=== PATIENT | female | born 1950 | race Caucasian/White ===

== ENCOUNTER 2020-05-11 18:18 | Inpatient (IN) | payer MEDICARE, MEDICAID ==
[~2020-05-11] VITALS: Ht 172.7 cm; Wt 58.4 kg
[2020-05-11 18:22] VITALS: BP 112/64
[2020-05-11 19:01] LABS: HEMATOCRIT 41.7 % (37.0-47.0); HEMOGLOBIN 14.2 gm/dL (12.0-15.0); MCH 29.7 pg (26.0-34.0); MCV 87.3 fL (80.0-100.0); MPV 9.8 fl. (7.2-11.1); NUCLEATED RBCS 0 /100WBC; PLATELET COUNT* 286 thou/uL (150-400); RBC 4.78 mil/uL (4.20-5.00); RDW-CV 16.2 % (10.5-14.5); WBC 9.5 thou/uL (4.0-11.0)
[2020-05-11 19:10] LABS: CALCIUM 8.8 mg/dL (8.5-10.1); CREATININE 0.7 mg/dL (0.6-1.3); POTASSIUM 4.2 mmol/L (3.5-5.1)
[2020-05-11 19:15] LABS: ALBUMIN 3.2 g/dL (3.4-5.0); TOTAL BILIRUBIN 0.1 mg/dL (<0.1-1.0); TOTAL PROTEIN 8.3 g/dL (6.4-8.2)
[2020-05-11 19:28] LABS: ABSOLUTE BASOPHILS 0.1 thou/uL (0.0-0.2); ABSOLUTE EOSINOPHILS 0.3 thou/uL (0.0-0.7); ABSOLUTE LYMPHOCYTES 2.9 thou/uL (0.8-5.3); ABSOLUTE MONOCYTES 1.3 thou/uL (0.0-1.2); ABSOLUTE NEUTROPHILS 4.8 thou/uL (1.6-8.1); PLATELET ESTIMATE ADEQUATE
[2020-05-11 20:22] LABS: BE 3.5 mmol/L (-2 to +3); pH 7.382 (7.340-7.450)
[2020-05-11 20:27] LABS: PCO2 50.9 mmHg (35.0-45.0); PO2 210.7 mmHg (75.0-100.0)
[2020-05-11 20:27] LABS: INFLUENZA A ANTIGEN Negative (Negative); INFLUENZA B ANTIGEN Negative (Negative)
[2020-05-11 21:58] VITALS: BP 114/66
[2020-05-11 22:30] VITALS: BP 100/62
[2020-05-12] VITALS: BP 112/67
[2020-05-12 04:00] VITALS: BP 97/62
[2020-05-12] MEDS ORDERED: CALCIUM CARBON600 MG PO (04:10)
[2020-05-12] MEDS ORDERED: ZYRTEC 10 MG TA10 MG PO (04:10)
[2020-05-12] MEDS ORDERED: CONSTULOSE10 GM/15 M PO (04:11)
[2020-05-12] MEDS ORDERED: FUROSEMIDE 20 M20 MG PO (04:11)
[2020-05-12] MEDS ORDERED: KLOR-CON 10 ER10 MEQ PO (04:12)
[2020-05-12] MEDS ORDERED: ZOLOFT100 MG PO (04:13)
[2020-05-12] MEDS ORDERED: ACIDOPHILUS CA1 EAC1 PO (04:13)
[2020-05-12] MEDS ORDERED: PEPCID20 MG PO (04:14)
[2020-05-12] MEDS ORDERED: ELIQUIS5 MG PO (04:14)
[2020-05-12] MEDS ORDERED: SENNA LAXATIVE8.6 MG PO (04:15)
[2020-05-12] MEDS ORDERED: MUCINEX600 MG PO (04:15)
[2020-05-12] MEDS ORDERED: SILACE50 MG/5 ML PO (04:16)
[2020-05-12] MEDS ORDERED: VALPROIC A250 MG/51 PO (04:17)
[2020-05-12] MEDS ORDERED: ACETAMINOPHEN325 M1 PO (04:17)
[2020-05-12] MEDS ORDERED: DULCOLAX10 MG RECTAL (04:18)
[2020-05-12] MEDS ORDERED: DIPHEDRYL25 M2 PO (04:19)
[2020-05-12] MEDS ORDERED: FLEET ENEMA133 ML RECTAL (04:20)
[2020-05-12] MEDS ORDERED: MILK OF MA400 MG/5 M PO (04:21)
[2020-05-12] MEDS ORDERED: TRAMADOL 50 MG50 MG PO (04:22)
[2020-05-12] MEDS ORDERED: IPRAT-ALBUT 0.5-3 ML INH (04:54)
[2020-05-12 08:00] VITALS: BP 113/70
[2020-05-12 09:28] LABS: CALCIUM 8.6 mg/dL (8.5-10.1); CREATININE 0.6 mg/dL (0.6-1.3); MAGNESIUM 2.1 mg/dL (1.8-2.4); POTASSIUM 4.4 mmol/L (3.5-5.1)
[2020-05-12 12:00] VITALS: BP 118/83
[2020-05-12 18:40] VITALS: BP 113/78
[2020-05-12 20:00] VITALS: BP 113/69
[2020-05-13] VITALS: BP 103/66
[2020-05-13 04:00] VITALS: BP 108/64
[2020-05-13 09:10] VITALS: BP 118/93
[2020-05-13 13:00] VITALS: BP 138/96
[2020-05-13 17:58] VITALS: BP 138/59
[2020-05-13 20:00] VITALS: BP 113/51
[2020-05-14 04:00] VITALS: BP 120/71
[2020-05-14 08:30] VITALS: BP 130/78
[2020-05-14 15:00] VITALS: BP 107/68
[2020-05-14 18:58] VITALS: BP 112/56
[2020-05-14 20:00] VITALS: BP 113/64
[2020-05-15] VITALS: BP 115/62
[2020-05-15 08:00] VITALS: BP 130/77
[2020-05-15] MEDS ORDERED: DEXAMETHASONE 22 M1 PO (09:27)
[2020-05-15 18:55] VITALS: BP 127/74
[2020-05-15 20:00] VITALS: BP 110/65
[2020-05-16 04:00] VITALS: BP 112/83
[2020-05-16 16:00] VITALS: BP 128/65
[2020-05-16 20:00] VITALS: BP 114/76
[2020-05-17] VITALS: BP 105/65
[2020-05-17 04:36] LABS: ABSOLUTE MONOCYTES 0.9 thou/uL (0.0-1.2); ABSOLUTE NEUTROPHILS 5.5 thou/uL (1.6-8.1); BASOPHILS 0.3 %; EOSINOPHILS 0.1 %; HEMATOCRIT 40.6 % (37.0-47.0); HEMOGLOBIN 13.9 gm/dL (12.0-15.0); LYMPHOCYTES 31.6 %; MCH 29.2 pg (26.0-34.0); MCHC 34.2 g/dL (28.0-37.0); MCV 85.3 fL (80.0-100.0); MONOCYTES 9.6 %; MPV 9.9 fl. (7.2-11.1); NUCLEATED RBCS 0 /100WBC; PLATELET COUNT* 311 thou/uL (150-400); POLYS 58.4 %; RBC 4.76 mil/uL (4.20-5.00); RDW-CV 16.8 % (10.5-14.5); WBC 9.3 thou/uL (4.0-11.0)
[2020-05-17 06:16] LABS: CALCIUM 8.7 mg/dL (8.5-10.1); CREATININE 0.6 mg/dL (0.6-1.3); POTASSIUM 4.3 mmol/L (3.5-5.1); TOTAL BILIRUBIN 0.3 mg/dL (<0.1-1.0); TOTAL PROTEIN 7.5 g/dL (6.4-8.2)
[2020-05-17 12:03] VITALS: BP 117/77
[2020-05-17 15:49] VITALS: BP 107/95
[2020-05-17 20:30] VITALS: BP 126/76
[2020-05-18 04:32] VITALS: BP 144/83
[2020-05-18 08:00] VITALS: BP 123/75
[2020-05-18 14:06] VITALS: BP 108/72
[2020-05-18 19:09] VITALS: BP 134/80
[2020-05-18 20:16] VITALS: BP 122/74
[2020-05-19] VITALS: BP 128/78
[2020-05-19 04:56] LABS: ABSOLUTE LYMPHOCYTES 3.2 thou/uL (0.8-5.3); ABSOLUTE MONOCYTES 0.9 thou/uL (0.0-1.2); ABSOLUTE NEUTROPHILS 6.2 thou/uL (1.6-8.1); BASOPHILS 0.3 %; HEMATOCRIT 43.3 % (37.0-47.0); HEMOGLOBIN 14.5 gm/dL (12.0-15.0); LYMPHOCYTES 31.2 %; MCH 28.9 pg (26.0-34.0); MCHC 33.6 g/dL (28.0-37.0); MCV 86.3 fL (80.0-100.0); MONOCYTES 8.4 %; MPV 9.6 fl. (7.2-11.1); NUCLEATED RBCS 0 /100WBC; POLYS 60.1 %; RBC 5.01 mil/uL (4.20-5.00); RDW-CV 16.8 % (10.5-14.5); WBC 10.3 thou/uL (4.0-11.0)
[2020-05-19 05:26] LABS: PLATELET COUNT* 386 thou/uL (150-400)
[2020-05-19 05:33] LABS: CALCIUM 8.7 mg/dL (8.5-10.1); CREATININE 0.6 mg/dL (0.6-1.3); POTASSIUM 3.7 mmol/L (3.5-5.1); TOTAL BILIRUBIN 0.3 mg/dL (<0.1-1.0); TOTAL PROTEIN 8.2 g/dL (6.4-8.2)
[2020-05-19 08:00] VITALS: BP 119/68
[2020-05-19 18:59] VITALS: BP 132/83
[2020-05-19 20:51] VITALS: BP 110/59
[2020-05-20] VITALS: BP 130/78
[2020-05-20 08:00] VITALS: BP 127/70
[2020-05-20 17:20] VITALS: BP 113/66
[2020-05-20 19:47] VITALS: BP 120/72
[2020-05-21] VITALS: BP 147/87
[2020-05-21 08:00] VITALS: BP 124/66
[2020-05-21 16:17] VITALS: BP 117/70
[2020-05-21 20:00] VITALS: BP 118/72
[2020-05-22] VITALS: BP 139/67
[2020-05-22 05:13] LABS: CREATININE 0.6 mg/dL (0.6-1.3); MAGNESIUM 2.1 mg/dL (1.8-2.4); POTASSIUM 3.4 mmol/L (3.5-5.1)
[2020-05-22 06:22] LABS: HEMATOCRIT 43.2 % (37.0-47.0); HEMOGLOBIN 14.3 gm/dL (12.0-15.0); MCH 29.2 pg (26.0-34.0); MCHC 33.1 g/dL (28.0-37.0); MPV 10.1 fl. (7.2-11.1); RBC 4.9 mil/uL (4.20-5.00); RDW-CV 16.1 % (10.5-14.5); WBC 11.9 thou/uL (4.0-11.0)
[2020-05-22 08:00] VITALS: BP 112/60
[2020-05-22] MEDS ORDERED: DEXAMETHASONE 22 M1 PO (19:52)
--- NOTE | 2020-05-25 13:11 | CON ---
[address] [address] CONSULTATION Name: KRISTIN CAMERON Room: [address] [place] .#: [id number] Admission: 05/11/20 Attend Phys: Elia Gold Discharge: 05/22/20 Date of : 54 Report #: [id number] THIS REPORT FOR: //name// cc: Ck Murillo MD, Srinath MD ~ THIS REPORT FOR: //name// CC: Jessica Murillo DATE OF SERVICE: 05/18/2020 REQUESTING PHYSICIAN: Consult has been requested by Dr. Sauceda. INDICATION FOR CONSULTATION: COVID-19. HISTORY OF PRESENT ILLNESS: This is a 69-year-old female. She is the resident of a long-term care facility, has a history of closed head injury as well as seizures. The patient is now admitted here with COVID-19. Currently, she is on room air. She is not in any respiratory distress. The patient does, however, have dysphagia. She has been coughing with taking liquids and has mild swelling of lower extremities. The patient is currently on honey thick liquids, I do not see a visit by the speech therapist during this hospitalization. Therefore, it is possible that the patient came in to the hospital being on honey thick liquids; however, I do not have definite information available in this regard. The patient is unable to provide a further history or review of systems. PAST MEDICAL HISTORY: Closed head injury, seizures, mood disorder, hypertension, vitamin D deficiency, hypothyroidism, skeletal abnormality/contractures, macrocytosis, thrombocytopenia. The patient is reported to be a functional quadriplegic hypercoagulable state. She is on long-term anticoagulation. SOCIAL HISTORY: There is no documented history of smoking, ethanol abuse or drug abuse. CURRENT MEDICATIONS: List in [facility] reviewed. HOME MEDICATIONS: List at the long-term care facility in [facility] reviewed. FAMILY HISTORY: The patient is unable to provide a family history. ALLERGIES: MULTIPLE MEDICATIONS INCLUDING ANTIBIOTICS ESSENTIALLY EVERY GROUP LISTED AN ALLERGY. I am not certain if the patient in fact is allergic to all these medications. I [place] [address] CONSULTATION Name: KRISTIN CAMERON Room: [address]#: [id number] Admission: 05/11/20 Attend Phys: Elia Gold Discharge: 05/22/20 Date of : 54 Report #: [id number] PHYSICAL EXAMINATION: GENERAL: She is awake, but confused. VITAL SIGNS: Has a pulse of 92 and a blood pressure of 108/72. She is on room air, has been saturating in the low 90s. Last O2 saturation recorded at 90%. HEENT: Head is normocephalic. There is no raised JVP. CHEST: Clear to auscultation. HEART: Regular. There is no murmur. ABDOMEN: Soft and nontender. EXTREMITIES: Lower extremities do show trace to 1+ edema, which is somewhat more on the left side than the right. LABORATORY DATA: The patient's chest x-ray shows raised right hemidiaphragm, last repeated 2 days ago. There are patchy bilateral infiltrates as well consistent with her diagnosis of COVID-19. Both chest x-rays are reviewed. COVID-19 antigen was positive. Chemistry as well as CBC last repeated yesterday in [facility] reviewed. D-dimer initially was not elevated. Initial arterial blood gas did show pCO2 retention with a normal pH. Her bicarbonate was also elevated to 33 at that time, and the last one was 29. ASSESSMENT AND PLAN: 1. COVID-19. Agree with current management. Suggest tapering off dexamethasone as tolerated. Last recorded O2 saturation is 90%, but the patient is not in any distress. I would recommend rechecking oxygen. We will plan to keep at or above 92% for now. 2. Pulmonary infiltrates. Appear to be secondary to COVID-19. I do not see any definite evidence of superimposed bacterial infection. We will repeat a chest x-ray tomorrow and reevaluate. Note that the patient could have low-grade, long-term aspiration though. 3. Dysphagia. Recommend consulting speech. Recommend observing aspiration precautions. The patient already is on honey thick liquids. 4. Mild fluid overload. She is on low dose Lasix. Blood pressure last recorded on the lower side at 108/72. If blood pressure remains maintained, we can give her additional Lasix. I do not have a measure of her left ventricular ejection fraction available. Down the line, an echocardiogram can be considered. 5. Hypercoagulable state. Noted to be on Eliquis long-term. 6. Functional quadriplegic. 7. History of close head injury. 8. History of a seizure disorder. Thanks for this consultation. <ELECTRONICALLY SIGNED> By: Boone Glez MD 05/25/20 [id number] Glez MD /nt
== END 2020-05-22 13:30 | DRG 177 ==
LOC: M.ERS 18:18 → M.TBA-ER 20:43 → M.2W 20:43
PROVIDERS: Emergency Medicine; Family Medicine; Internal Medicine; Internal Medicine Critical Care Medicine; Personal Emergency Response Attendant; ADMIT Internal Medicine; ATTEND Internal Medicine
DX: U07.1 COVID-19 (principal); J96.01 Acute respiratory failure with hypoxia; J12.89 Other viral pneumonia; R53.2 Functional quadriplegia; D68.59 Other primary thrombophilia; E44.1 Mild protein-calorie malnutrition; Z68.1 Body mass index [BMI] 19.9 or less, adult; I10 Essential (primary) hypertension; F39 Unspecified mood [affective] disorder; E03.9 Hypothyroidism, unspecified; G40.909 Epilepsy, unspecified, not intractable, without status epilepticus; E87.70 Fluid overload, unspecified; R13.10 Dysphagia, unspecified; D69.6 Thrombocytopenia, unspecified; B34.9 Viral infection, unspecified; F32.9 Major depressive disorder, single episode, unspecified; G89.29 Other chronic pain; Z66 Do not resuscitate; Z79.899 Other long term (current) drug therapy; Z88.1 Allergy status to other antibiotic agents; Z88.0 Allergy status to penicillin; Z88.2 Allergy status to sulfonamides; Z88.8 Allergy status to other drugs, medicaments and biological substances; Z74.01 Bed confinement status

== ENCOUNTER 2020-08-03 18:36 | Emergency (ER) | payer MEDICARE, MEDICAID ==
[~2020-08-03] VITALS: Ht 157.5 cm; Wt 63.5 kg
[~2020-08-03 18:36] MED LIST: ACETAMINOPHEN325 M1 PO; ACIDOPHILUS CA1 EAC1 PO; CALCIUM CARBON600 MG PO; CONSTULOSE10 GM/15 M PO; DEXAMETHASONE 22 M1 PO; DIPHEDRYL25 M2 PO; DULCOLAX10 MG RECTAL; ELIQUIS5 MG PO; FLEET ENEMA133 ML RECTAL; FUROSEMIDE 20 M20 MG PO; IPRAT-ALBUT 0.5-3 ML INH; KLOR-CON 10 ER10 MEQ PO; MILK OF MA400 MG/5 M PO; MUCINEX600 MG PO; PEPCID20 MG PO; SENNA LAXATIVE8.6 MG PO; SILACE50 MG/5 ML PO; TRAMADOL 50 MG50 MG PO; VALPROIC A250 MG/51 PO; ZOLOFT100 MG PO; ZYRTEC 10 MG TA10 MG PO
[2020-08-03 19:03] LABS: ABSOLUTE BASOPHILS 0.1 thou/uL (0.0-0.2); ABSOLUTE EOSINOPHILS 0.4 thou/uL (0.0-0.7); ABSOLUTE LYMPHOCYTES 4.3 thou/uL (0.8-5.3); ABSOLUTE MONOCYTES 1.1 thou/uL (0.0-1.2); ABSOLUTE NEUTROPHILS 5.1 thou/uL (1.6-8.1); EOSINOPHILS 3.2 %; HEMATOCRIT 43.1 % (37.0-47.0); HEMOGLOBIN 13.8 gm/dL (12.0-15.0); LYMPHOCYTES 39.4 %; MCH 29.9 pg (26.0-34.0); MCV 93.6 fL (80.0-100.0); MONOCYTES 9.9 %; MPV 9.9 fl. (7.2-11.1); NUCLEATED RBCS 0 /100WBC; PLATELET COUNT* 329 thou/uL (150-400); POLYS 46.5 %; RDW-CV 15.8 % (10.5-14.5)
[2020-08-03 19:14] LABS: CALCIUM 8.4 mg/dL (8.5-10.1); CREATININE 0.5 mg/dL (0.6-1.3); POTASSIUM 4.3 mmol/L (3.5-5.1)
[2020-08-03 19:19] LABS: ALBUMIN 3.1 g/dL (3.4-5.0); TOTAL BILIRUBIN 0.1 mg/dL (<0.1-1.0); TOTAL PROTEIN 8.2 g/dL (6.4-8.2)
[2020-08-03 21:06] LABS: URINE BILIRUBIN NEGATIVE (Negative); URINE BLOOD 3+ (Negative); URINE COLOR YELLOW; URINE GLUCOSE-RANDOM NEGATIVE (Negative); URINE KETONES NEGATIVE (Negative); URINE LEUKOCYTES-REFLEX 3+ (Negative); URINE NITRITE-REFLEX POSITIVE (Negative); URINE PROTEIN TRACE (Negative); URINE UROBILINOGEN 0.2 E.U./dl (0.2-1.0)
[2020-08-03 21:07] LABS: BACTERIA-REFLEX >30 Many /HPF (None Seen); MUCUS 4-6 Moderate strn/LPF (None Seen); SQUAMOUS 0-3 Few /LPF (0-3); TRANSITIONAL EPITHEL CELL 0-3 Few /LPF (None Seen); URINE CLARITY CLOUDY; URINE RBC >20 Many /HPF (0-2); URINE WBC-REFLEX >25 Many /HPF (0-5); WBC CLUMPS Moderate (None Seen)
[2020-08-03 21:08] LABS: COARSE GRANULAR CASTS 0-3 Few /LPF (None Seen); CRYSTALS None Seen /LPF (None Seen); FINE GRANULAR CASTS 0-3 Few /LPF (None Seen)
[2020-08-03] MEDS ORDERED: MACROBID 100 M100 M1 PO (21:26)
[2020-08-03 22:27] VITALS: BP 114/63
== END 2020-08-03 22:28 | disposition still patient (30) ==
LOC: M.ERS 18:36
PROVIDERS: Emergency Medicine
DX: N39.0 Urinary tract infection, site not specified (principal); I10 Essential (primary) hypertension; Z88.1 Allergy status to other antibiotic agents; Z88.2 Allergy status to sulfonamides; Z88.8 Allergy status to other drugs, medicaments and biological substances; Z88.0 Allergy status to penicillin; Z86.2 Personal history of diseases of the blood and blood-forming organs and certain disorders involving the immune mechanism